=== PATIENT | male | born 1980 | race Caucasian/White ===

== ENCOUNTER 2018-12-14 19:38 | Emergency (ER) | payer BC, SELFPAY ==
[2018-12-14 19:40] VITALS: BP 116/76; PULSE 90; RESP 16; TEMP 37.1; O2SAT 98
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
--- NOTE | 2018-12-17 12:36 | NUR.NOTE ---
Nursing Note: Pt arrives in this waiting room for work note today for time seen on Sunday12/04/18. Pt states he wants note for work which will states what he can and cannot do for physical restrictions. Pt chose to leave AMA after total time in ED of just over 1 hour, as described by provider approx 45 minutes post medical exam. Pt chose to decline xray. Spoke with Dr. Gaxiola, who agrees that note cannot be provided which speaks to capability as the pt did not complete thorough medical exam including xray. Pt given a reprint of discharge paperwork, which notes AMA as well as AC joint injury. Pt expresses displeasure about wait time and describes it as not busy at all and I waited for hours and hours. Encouraged to follow up with ED or PCP if having continued pain and/or numbness in arm.
== END 2018-12-14 20:45 | disposition home or self-care (01) ==
PROVIDERS: Emergency Provider Student in an Organized Health Care Education/Training Program; PCP Nurse Practitioner Family
DX: M25.512 Pain in left shoulder (principal); R20.2 Paresthesia of skin; V17.0XXA Pedal cycle driver injured in collision with fixed or stationary object in nontraffic accident, initial encounter; Z53.29 Procedure and treatment not carried out because of patient's decision for other reasons
CPT/HCPCS: 99282

== ENCOUNTER 2018-12-18 12:36 | Emergency (ER) | payer BC, SELFPAY ==
[2018-12-18 12:40] VITALS: BP 129/81; PULSE 77; RESP 16; TEMP 36.8; O2SAT 99
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
== END 2018-12-18 14:39 | disposition home or self-care (01) ==
PROVIDERS: Emergency Provider Physician Assistant; PCP Nurse Practitioner Family
DX: S43.402A Unspecified sprain of left shoulder joint, initial encounter (principal); V17.0XXA Pedal cycle driver injured in collision with fixed or stationary object in nontraffic accident, initial encounter
CPT/HCPCS: 99284; 73000; 73030; 99282

== ENCOUNTER 2019-09-18 15:38 | Outpatient (REF) | payer SELFPAY ==
[2019-09-22 15:16] LABS: SARS-CoV-2 RNA Undetected (Undetected); SARS-CoV-2 Specimen Source Nasopharynx
== END 2019-09-18 15:58 ==
LOC: NCHCN 15:38
PROVIDERS: PCP Nurse Practitioner Family; Visit Provider Physician Assistant
DX: Z11.59 Encounter for screening for other viral diseases (principal)
CPT/HCPCS: U0003

== ENCOUNTER 2021-01-20 16:51 | Outpatient (REF) | payer OTHER, SELFPAY ==
[2021-01-21 14:23] LABS: COVID-19 RT-PCR UVMMC Result Positive (Negative)
== END 2021-01-20 16:52 | disposition home or self-care (01) ==
LOC: LBN 16:51
PROVIDERS: PCP Nurse Practitioner Family; Visit Provider Nurse Practitioner Family
DX: Z20.822 Contact with and (suspected) exposure to COVID-19 (principal); U07.1 COVID-19
CPT/HCPCS: U0003

== ENCOUNTER 2023-02-20 10:32 | Emergency (ER) | payer MEDICAID, SELFPAY ==
--- NOTE | 2023-02-20 10:30 | RT.EKG_ITS ---
APPROVED REPORT Exam: Resting ECG Reason for Exam: chest discomfort Patient Location: E HR:74 bpm ECG Measurements Heart Rate 74 AXIS IA 162 P 150 QRSd 91 QRS 22 QT 404 T 50 QTc 448 Conclusion Sinus or ectopic atrial rhythm...P axis (-45,135) sinus rhythm, normal axis, normal intervals, non ischemic
[2023-02-20 10:33] VITALS: BP 136/91; PULSE 79; RESP 15; TEMP 36.3; O2SAT 100
[2023-02-20 10:39] VITALS: BP 136/91; PULSE 79; RESP 15; TEMP 36.3; O2SAT 100
[2023-02-20 10:56] VITALS: RESP 20
--- NOTE | 2023-02-20 11:20 | W.ED.GENAD ---
HPI General Stated Complaint: GenMedical PHIL: 3 Date/Time Provider Initiated Documentation: 02/20/23 10:37. HPI Narrative: 43-year-old male history of esophagitis and hiatal hernia presents with esophageal and epigastric discomfort nausea without vomiting. Normal bowel movements. Denies history of upper GI bleed or heavy drinking Related Data Home Medications Medication Instructions Recorded Confirmed esomeprazole magnesium 20 mg 20 mg PO DAILY 11/09/15 02/20/23 capsule,delayed release (Nexium) Allergies Allergy/AdvReac Type Severity Reaction Status Date / Time No Known Allergies Allergy Unverified 02/20/23 10:38 Review of Systems Narrative: Review of Systems Constitutional: negative Eyes: negative ENT: negative Cardiovascular: negative Respiratory: negative Gastrointestinal: Upper abdominal/esophageal discomfort : negative Musculoskeletal: negative Skin: negative Neurologic: negative Psych: negative PFSH All Active Problems (Updated 02/20/23 @ 13:11 by Raghu Chen MD) Esophagitis (Acute) COVID-19 (Acute 01/21/21) Social History Smoking/Tobacco Use Status: Former Tobacco Use Smoking risk assessment performed?: Yes Alcohol Intake: current Alcohol Intake frequency: a few times a month Alcohol type: beer Drug use: Never Substance use type: does not use Housing: house Do you feel safe at home: Yes Do you feel safe in your relationship?: Yes PAWSS Have you Been Recently Intoxicated or Drunk Within the Last 30 days?: No Have you Ever Experienced Previous Episodes of Alcohol Withdrawal?: No Have you ever Experienced Withdrawal Seizures?: No Have you ever Experienced Delirium Tremens(DT)s?: No Have you ever undergone Alcohol Rehabilitation Treatment (i.e, inpt ot outpatient treatment programs)?: No Have you ever Experienced Blackouts?: No Have you ever Combined Alcohol with other Downers within the last 90 days?: No Positive Blood Alcohol level on Presentation? [PCS.BAL]: No Result: 0 Exam Narrative Exam Narrative: Physical Examination General: alert, awake, cooperative, resting comfortably, no acute distress HEENT: normocephalic, atraumatic; PERRL, EOM intact, conjunctiva normal; no nasal discharge; moist mucous membranes, oral and pharyngeal mucosa normal, tolerating secretions Neck: supple, trachea midline; full ROM Chest: normal to inspection Respiratory: normal respiratory effort, speaking in full sentences Cardiac: regular rate, regular rhythm, S1S2 intact, no murmurs rubs or gallops GI: abdomen soft, non-tender, non-distended; no palpable mass or hepatosplenomegaly Skin: no lesions, rashes or trauma appreciated Neuro: AAOx3, normal speech, moving all extremities Psych: Appropriate mood and affect Course Vital Signs Vital signs: Vital Signs Temperature 36.3 C L 02/20/23 10:33 Pulse 79 02/20/23 10:33 Respiratory Rate 15 02/20/23 10:33 Blood Pressure 136/91 H 02/20/23 10:33 Pulse Oximetry 100 02/20/23 10:33 Temperature 36.3 C L 02/20/23 10:39 Temperature Source Tympanic 02/20/23 10:39 Pulse 79 02/20/23 10:39 Respiratory Rate 20 02/20/23 10:56 Respiratory Effort Normal, Non-Labored 02/20/23 10:56 Respiratory Depth Normal 02/20/23 10:56 Respiratory Pattern Normal 02/20/23 10:56 Blood Pressure 136/91 H 02/20/23 10:39 Blood Pressure Position Sitting 02/20/23 10:39 Pulse Oximetry 100 02/20/23 10:39 Oxygen Delivery Method Room Air 02/20/23 10:39 Oxygen Flow Rate 0 02/20/23 10:39 Pain Level 5 02/20/23 10:39 Medical Decision Making 43-year-old male history of esophagitis, hiatal hernia, esophageal ulcers, presents with upper abdominal/esophageal discomfort. Denies vomiting however slightly nauseous. Has been able to tolerate p.o. Normal bowel movements. Denies history of heavy drinking or upper GI bleed. Consider recurrent esophagitis versus esophageal ulcer versus symptomatic hiatal hernia. EKG normal sinus rhythm nonischemic low suspicion for ACS aortic pathology PE pneumonia or pneumothorax. Trial of GI cocktail including Mylanta viscous lidocaine Zofran and famotidine. Close reassessment likely GI referral. 13: 10 patient resting notably feeling better after meds. Quality:SDOH Health Related Social Needs: No Data to Display Discharge Plan Disposition Patient Disposition: Home Condition: Improving Discharge Details Chief Complaint: GenMedical Clinical Impression: Esophagitis Primary Care Provider: [facility] ED Provider: Raghu Chen Home Meds and New Rx's Prescriptions: No Action esomeprazole magnesium [Nexium] 20 MG capsule,delayed release(DR/EC) 20 mg PO DAILY Discharge Instructions Instructions: Esophagitis (ED) Additional Instructions: Please follow-up with your primary care physician and/or gastroenterology specialist.
[2023-02-20] MEDS: Ondansetron O.D.T. 4 MG TABEF SL (11:37)
[2023-02-20] MEDS: Famotidine 20 MG TAB PO (11:37)
[2023-02-20 13:28] VITALS: BP 136/88; PULSE 78; RESP 18; TEMP 37; O2SAT 99
== END 2023-02-20 13:29 | disposition home or self-care (01) ==
PROVIDERS: Emergency Provider Emergency Medicine; PCP Nurse Practitioner Family
DX: K20.90 Esophagitis, unspecified without bleeding (principal)
CPT/HCPCS: 93005; 99283; 93010; 99284

== ENCOUNTER 2023-04-09 04:54 | Outpatient (CLI) | payer MEDICAID, SELFPAY ==
[2023-04-09 12:33] LABS: Calculated LDL 89 mg/dL (<100); Cholesterol 185 mg/dL (<200); HDL Cholesterol 55 mg/dL (40-60); Triglyceride 208 mg/dL (<150)
[2023-04-09 12:55] LABS: Hemoglobin A1C 5.6 % (<5.7)
[2023-04-09 18:16] LABS: PSA, Screening 0.6 ng/mL (<=2.5)
== END 2023-04-09 04:55 | disposition home or self-care (01) ==
LOC: LOS 04:54
PROVIDERS: PCP Nurse Practitioner Family; Visit Provider Nurse Practitioner Family
DX: Z13.220 Encounter for screening for lipoid disorders (principal); Z13.1 Encounter for screening for diabetes mellitus; Z12.5 Encounter for screening for malignant neoplasm of prostate
CPT/HCPCS: 36415; 80061; 84153; 83036